=== PATIENT | female | born 1955 | race Caucasian/White ===

== ENCOUNTER → 2020-05-07 13:42 | Outpatient (CLI) | payer MEDICARE, SELFPAY ==
--- NOTE | ~2020-05-07 | MM_ITS ---
EXAMINATION: MM screening ling BI w joselyn HISTORY: Screening mammogram TECHNIQUE: Craniocaudal and mediolateral oblique 3-D tomosynthesis images were obtained and synthetic 2-D images were generated. CAD analysis was submitted and interpreted. COMPARISON: 02/19/2019 bilateral digital screening mammogram 06/26/2018 stereotactic biopsy of right breast 06/05/2018 diagnostic right digital mammogram and limited right breast ultrasound 03/02/2018 right breast stereotactic biopsy 01/30/2018 post biopsy right diagnostic mammogram 01/12/2018 diagnostic right digital mammogram and limited right breast ultrasound 01/03/2018 bilateral digital screening mammogram BREAST PARENCHYMAL COMPOSITION: There are scattered areas of fibroglandular density. FINDINGS: 3 biopsy markers on the right; history of prior benign right breast biopsies x3. There is n o evidence of suspicious mass, calcification, or architectural distortion to suggest malignancy in ei ther breast. There has been no suspicious interval change. IMPRESSION: 1. No mammographic evidence of malignancy. 2. Recommend routine screening mammography in one year. BI-RADS Category 2: Benign finding(s). Reviewed, dictated and finalized at location A.
== END ==
PROVIDERS: Visit Provider Obstetrics & Gynecology
DX: Z12.31 Encounter for screening mammogram for malignant neoplasm of breast (principal)
CPT/HCPCS: 77063; 77067

== ENCOUNTER → 2021-07-07 13:10 | Outpatient (CLI) | payer MEDICARE, SELFPAY ==
--- NOTE | ~2021-07-07 | MM_ITS ---
EXAMINATION: MM screening [facility] BI w joselyn HISTORY: Screening mammogram TECHNIQUE: Craniocaudal and mediolateral oblique 3-D tomosynthesis images were obtained and synthetic 2-D images were generated. CAD analysis was submitted and interpreted. COMPARISON: 05/07/2020, 02/19/2019, 06/05/2018 BREAST PARENCHYMAL COMPOSITION: There are scattered areas of fibroglandular density. FINDINGS: There is no evidence of suspicious mass, calcification, or architectural distortion to sugg est malignancy in either breast. There has been no suspicious interval change. IMPRESSION: 1. No mammographic evidence of malignancy. 2. Recommend routine screening mammography in one year. BI-RADS Category 1: Negative Reviewed, dictated and finalized at location A. CREWMAN
== END ==
PROVIDERS: Visit Provider Obstetrics & Gynecology
DX: Z12.31 Encounter for screening mammogram for malignant neoplasm of breast (principal)
CPT/HCPCS: 77063; 77067

== ENCOUNTER → 2022-09-14 12:15 | Outpatient (CLI) | payer MEDICARE, SELFPAY ==
--- NOTE | ~2022-09-14 | MM_ITS ---
EXAMINATION: MM screening ling BI w joselyn HISTORY: Screening TECHNIQUE: Craniocaudal and mediolateral oblique 3-D tomosynthesis images were obtained and synthetic 2-D images were generated. CAD analysis was submitted and interpreted. COMPARISON: Comparison to multiple prior studies sequentially, with oldest reviewed study dated 05/15. BREAST PARENCHYMAL COMPOSITION: Breast composed of scattered areas of fibroglandular density FINDINGS: The left breast is stable without evidence for malignancy. There is a developing mass in th e upper outer quadrant of the right breast posteriorly. There are no suspicious calcifications or arc hitectural distortion in the right breast. IMPRESSION: 1. Developing right breast mass upper outer quadrant posteriorly. 2. Additional mammographic views and possible breast ultrasound are recommended. BI-RADS Category 0: Incomplete: Needs additional imaging evaluation. Reviewed, dictated and finalized at location A. ET CUTTER IMPRESSION: 1. Developing right breast mass upper outer quadrant posteriorly. 2. Additional mammographic views and possible breast ultrasound are recommended . BI-RADS Category 0: Incomplete: Needs additional imaging evaluation.
== END ==
PROVIDERS: PCP Obstetrics & Gynecology; Visit Provider Obstetrics & Gynecology
DX: Z12.31 Encounter for screening mammogram for malignant neoplasm of breast (principal); N63.11 Unspecified lump in the right breast, upper outer quadrant
CPT/HCPCS: 77063; 77067

== ENCOUNTER → 2022-10-04 08:06 | Outpatient (CLI) | payer MEDICARE, SELFPAY ==
--- NOTE | ~2022-10-04 | MMUS_ITS ---
EXAMINATION: MM diagnostic ling RT w joselyn, US breast RT limited HISTORY: New posterior upper outer quadrant right breast mass on September 14, 2022 screening mammogram TECHNIQUE: Additional 3-D tomosynthesis images of the right breast were performed and synthetic 2-D i mages were generated. CAD analysis was submitted and interpreted. High resolution upper outer quadr ant rightbreast ultrasound was performed. COMPARISON: September 14, 2022 bilateral screening mammogram July 07, 2021 bilateral screening mammogram FINDINGS: MAMMOGRAPHIC FINDINGS: There is an irregular approximately 4.7 x 8 mm opacity in the posterior upper outer right breast, new since 07/03/2021. ULTRASOUND: 10:00 9 cm from nipple: Irregular hypoechoic approximately 5 x 8 mm antiparallel lesion with posterio r shadowing IMPRESSION: 1. New approximately 8 mm irregular mass at 10:00 9 cm from nipple 2. Ultrasound-guided biopsy is recommended BI-RADS category 4, suspicious findings. Dr. Hills telephoned the report and ultrasound-guided biopsy recommendation on 10/04/2022 at 0910 hours to Chel Mota. Reviewed, dictated and finalized at location A. INING ROOM CUTTER IMPRESSION: 1. New approximately 8 mm irregular mass at 10:00 9 cm from nipple 2. Ultrasound-guided biopsy is recommended BI-RADS category 4, suspicious findings. Dr. Hills telephoned the report and ultrasound-guided biopsy recommendation on at 0910 hours to Chel Mota.
== END ==
PROVIDERS: PCP Obstetrics & Gynecology
DX: N63.11 Unspecified lump in the right breast, upper outer quadrant (principal)
CPT/HCPCS: 76642; 77061; 77065; G0279